=== PATIENT | male | born 2000 | race Caucasian/White ===

== ENCOUNTER 2020-08-12 09:20 | Emergency (ER) | payer OTHER ==
[2020-08-12 09:35] VITALS: PULSE 88
[2020-08-12] MEDS ORDERED: Sodium Chloride 0.9% 10 ML Syringe FLUSH PRN ×2 (10:01→10:14)
--- NOTE | 2020-08-12 10:01 | EDM.PDOC ---
ED HPI GENERAL MEDICAL PROBLEM - General Chief Complaint: Neck Problem Stated Complaint: RIGHT SIDE NECK SWELLING Time Seen by Provider: 08/12/20 09:44 Source of Information: Reports: Patient History Limitations: Reports: No Limitations - History of Present Illness INITIAL COMMENTS - FREE TEXT/NARRATIVE: Chato is a 20-year-old male presenting to the ED for evaluation of neck briseyda n/muscle strain. The patient has been seeking the care of a tank car reconditioner in [facility] for the last week who reportedly told him that he had ruptured a muscle in his neck. He has been getting some manipulation and has been using a natural path patch as well as taking ibuprofen 400 mg intermittently. He did continue to work after the initial injury in the swelling and pain has substantially worsened over the course of the week. He did see the tank car reconditioner again who recommended he come to the ER for further evaluation. The patient denies any numbness or tingling but the neck is becoming much more tight. Mom notices that he has become much louder with the snoring. He denies any difficulty with breathing or swallowing. 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 Both of which have likely further exacerbated his injury. He does complain of headache but denies any other neurologic symptoms. Right Neck Pain Score (Numeric/FACES): 6 - Related Data Allergies Allergy/AdvReac Type Severity Reaction Status Date / Time penicillin Allergy Hives Verified 08/12/20 09:35 Home Meds: Home Meds Clindamycin HCl 300 mg PO TID 14 Days #42 capsule 08/12/20 [Rx] Past Medical History - Past Health History Medical/Surgical History: Denies Medical/Surgical History - Infectious Disease History Infectious Disease History: Reports: None Social & Family History - Tobacco Use Tobacco Use Status *Q: Never Tobacco User - Caffeine Use Caffeine Use: Reports: Coffee - Recreational Drug Use Recreational Drug Use: No ED ROS GENERAL - Review of Systems Review Of Systems: See Below Constitutional: Reports: No Symptoms HEENT: Reports: Throat Swelling Respiratory: Reports: No Symptoms Cardiovascular: Reports: No Symptoms Endocrine: Reports: No Symptoms GI/Abdominal: Reports: No Symptoms : Reports: No Symptoms Musculoskeletal: Reports: Neck Pain (Neck pain and swelling with reduced range of motion), Muscle Pain (Right side cervical spine), Muscle Stiffness (Right- sided cervical spine) Skin: Reports: Bruising Neurological: Reports: Headache Psychiatric: Reports: No Symptoms Hematologic/Lymphatic: Reports: No Symptoms Immunologic: Reports: No Symptoms ED EXAM, UPPER BACK/NECK PAIN - Physical Exam Exam: See Below Exam Limited By: No Limitations General Appearance: Alert, Mild Distress Eye Exam: Bilateral Eye: EOMI, PERRL Throat/Mouth Exam: Normal Inspection, Normal Lips, Normal Oropharynx, Normal Voice, No Airway Compromise Head Exam: Atraumatic, Normocephalic Neck Exam: Limited Range of Motion (Limited range of motion with movement toward the right), Muscle Spasm (Significant pain and swelling over the right sided strap muscles, sternocleidomastoid muscle, trapezius muscle), Painful Range of Motion (Severe swelling over the right sided muscle groups limiting range of motion towards that direction), Tenderness, Tender Lateral, Other (By palpation, there appears to be a very large hematoma from the angle of the jaw to the supraclavicular space. There is bruising noted in the supraclavicular space. 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 As Tested, No Motor/Sensory Deficits, Alert, Normal Mood/Affect, Oriented x 3 Psychiatric: Normal Affect, Normal Mood Skin Exam: Warm/Dry, Ecchymosis (In the right supraclavicular space) Lymphatic: No Adenopathy Course - Vital Signs Last Recorded V/S: Last Vital Signs Temp 37.0 C 08/12/20 09:33 Pulse 88 08/12/20 11:48 Resp 16 08/12/20 11:48 BP 133/59 L 08/12/20 11:48 Pulse Ox 97 08/12/20 11:48 - Orders/Labs/Meds Orders: Active Orders 24 hr Category Date Time Status 3D Reconstruction [CT] Stat Exams 08/12/20 Taken Saline Lock Insert [OM.PC] Routine Oth 08/12/20 10:01 Ordered Labs: Laboratory Tests 08/12/20 08/12/20 Range/Units 11:10 11:10 WBC 15.2 H (4.5-11.0) K/uL RBC 4.86 (4.30-5.90) M/uL Hgb 14.0 (12.0-15.0) g/dL Hct 43.3 (40.0-54.0) % MCV 89 (80-98) fL MCH 29 (27-31) pg MCHC 32 (32-36) % Plt Count 196 (150-400) K/uL Neut % (Auto) 83 H (36-66) % Lymph % (Auto) 6 L (24-44) % Hand % (Auto) 10 H (2-6) % Eos % (Auto) 0 L (2-4) % Baso % (Auto) 0 (0-1) % ESR 58 H (0-20) mm/hr C-Reactive Protein 11.68 H (0.0-0.3) mg/dL Meds: Medications Discontinued Medications Generic Name Dose Route Start Last Admin Trade Name Freq PRN Reason Stop Dose Admin Sodium Chloride 70 mls @ 3 mls/sec 08/12/20 10:14 08/12/20 10:30 Normal Saline IV 08/12/20 10:15 3 mls/sec ONETIME ONE Administration Ceftriaxone Sodium 2 gm/ 50 mls @ 100 mls/hr 08/12/20 11:28 08/12/20 11:42 Sodium Chloride IV 08/12/20 11:57 100 mls/hr ONETIME ONE Administration Ibuprofen 600 mg 08/12/20 11:50 08/12/20 11:58 Motrin PO 08/12/20 11:51 600 mg ONETIME ONE Administration Iopamidol 100 ml 08/12/20 10:14 08/12/20 10:29 Isovue-300 (61%) IV 100 ml . DIRECTED PRN Administration RADIOLOGY EXAM Sodium Chloride 10 ml 08/12/20 10:01 Saline Flush FLUSH ASDIRECTED PRN Keep Vein Open Sodium Chloride 10 ml 08/12/20 10:14 08/12/20 10:29 Saline Flush FLUSH 10 ml ONETIME PRN Administration PER RADIOLOGY PROTOCOL - Radiology Interpretation Free Text/Narrative:: I discussed the case with Dr. Woodard from [facility] who reviewed the CT of the soft tissue neck and 3D reconstruction of the cervical spine. In addition I reviewed the report. Impression: 1. There is a 3.9 x 3.1 x 4.3 cm peripherally enhancing mass in the right level 3 lex station with moderate adjacent fat stranding, edema of the right sternocleidomastoid and levator scapula muscles, and severe intrinsic compression of the right internal jugular vein. Thickening and enhancement of the right platysma muscle. Findings are favored to represent supportive lymphadenitis with adjacent myositis and cellulitis. Necrotic metastatic lymph node is considered less likely given the degree of surrounding edema and lack of primary site. Follow-up imaging is recommended after treatment to ensure resolution. 2. There is retropharyngeal effusion measuring up to 8 mm AP. Multiple prominent right level 2 through 6 lymph nodes are likely reactive in etiology. 3. No cervical spine fracture. Mild straightening and slight reversal cervical lordosis may be secondary to muscle spasm or positioning. Dictated by Curt Woodard MD at August 12, 2020 10:51 AM. - Re-Assessments/Exams Free Text/Narrative Re-Assessment/Exam: 08/12/20 11:[address] of the soft tissue neck and 3D reconstruction of the cervical spine showing supportive lymphadenitis extending from the angle of the jaw down to the chest. We will initiate antibiotics with Rocephin 2 g IV and then placed the patient on clindamycin 300 mg 3 times daily for 14 days. This should cover the majority of bacterium associated with supportive lymphadenitis including staph aureus, Bartonella, Yersinia, and anaerobics. Recommendation from radiology is to reimage the neck after the completion of the antibiotics to ensure resolution. I had like the patient to follow-up with one of the clinic providers in 2 weeks who can arrange this. The patient is instructed to return to the ED should he have significant worsening especially if it starting to impede his airway. The CT does show retropharyngeal effusion and paratracheal swelling as well as mild compression of the right internal jugular vein. Patient continued continue to take naproxen 2 tablets twice daily for pain and swelling. I am taking him off work for 2 weeks until the resolution of this is complete. Departure - Departure Time of Disposition: 11:50 Disposition: Home, Self-Care 01 Condition: Fair Clinical Impression: Suppurative lymphadenitis - Discharge Information *PRESCRIPTION DRUG MONITORING PROGRAM REVIEWED*: Not Applicable *COPY OF PRESCRIPTION DRUG MONITORING REPORT IN PATIENT MICHELL: Not Applicable Prescriptions: Clindamycin HCl 300 mg PO TID 14 Days #42 capsule Instructions: Lymphangitis, Adult Referrals: PCP,None [Primary Care Provider] - Forms: ED Department Discharge Care Plan Goals: You have been diagnosed today with suppurative lymphadenitis which she has an abscess formation in the soft tissues of your neck likely arising from your throat. You will be on a 2-week course of clindamycin 300 mg 3 times a day which is an oral antibiotic active against this infection. This does not appear to be a traumatic hematoma (collection of blood due to straining of the muscle and the neck, but rather a soft tissue infection causing swelling and inflammation of the muscle and tissues between the muscles. You should refrain from heavy lifting or straining. Return to the emergency room immediately should you start to develop any shortness of breath or difficulty with swallowing. I would like you to follow-up with one of the [facility] doctors in 2 weeks for reevaluation including a repeat of the CT of the soft tissue of neck with contrast to ensure that the infection has cleared. Sepsis Event Note (ED) - Evaluation Sepsis Screening Result: No Definite Risk - Focused Exam Vital Signs: Vital Signs Temp Pulse Resp BP Pulse Ox 08/12/20 11:48 88 16 133/59 L 97 08/12/20 09:33 37.0 C 88 16 143/72 H 99 - Problem List & Annotations (1) Suppurative lymphadenitis SNOMED Code(s): 18849224 Code(s): L04.9 - ACUTE LYMPHADENITIS, UNSPECIFIED Status: Acute Priority: High - Problem List Review Problem List Initiated/Reviewed/Updated: Yes - My Orders Last 24 Hours: My Active Orders 08/12/20 3D Reconstruction [CT] Stat 08/12/20 10:01 Saline Lock Insert [OM.PC] Routine - Assessment/Plan Last 24 Hours: My Active Orders 08/12/20 3D Reconstruction [CT] Stat 08/12/20 10:01 Saline Lock Insert [OM.PC] Routine
[2020-08-12] MEDS ORDERED: Iopamidol 612 MG/ML 100 ML Bottle IV PRN (10:14)
--- NOTE | 2020-08-12 11:09 | CRLCT ---
INDICATION: neck pain and swelling on right TECHNIQUE: CT of the neck with 100 cc Omnipaque 300 iodinated contrast agent. Coronal and sagittal reconstructions are included. COMPARISON: None FINDINGS: There is a 3.9 x 3.1 x 4.3 cm peripherally enhancing mass in the right level 3 lex station with moderate adjacent fat stranding, thickening of the right sternocleidomastoid and levator scapula muscles. Severe external compression of the right internal jugular vein. Findings are favored to represent necrotic infectious lymphadenitis with adjacent myositis and cellulitis. Necrotic metastatic lymph node is considered less likely given degree of surrounding edema and lack of primary site. There is retropharyngeal effusion measuring up to 8 mm AP. Multiple prominent right level II-Vlymph nodes are likely reactive in etiology. The oral cavity, nasopharyngeal, oropharyngeal and hypopharyngeal mucosal spaces are normal. No periapical dental disease. The supraglottic, glottic and infraglottic larynx are normal. The airway including the trachea is normal and is patent. The parotid glands, submandibular and sublingual glands are normal in appearance. The thyroid gland is normal in appearance. Mild straightening and slight reversal cervical lordosis may be secondary to muscle spasm or positioning. No suspicious lytic or blastic osseous lesions. Minimal mucosal thickening in the right maxillary sinus. Mild polypoid mucosal thickening left maxillary sinus. Visualized orbital and intracranial contents are normal. Supraclavicular regions, mediastinum and soft tissues of the imaged chest wall are unremarkable. Visualized portions of the upper lungs are clear. Findings called to Dr. Martínez at 11:03 pm. IMPRESSION: 1. There is a 3.9 x 3.1 x 4.3 cm peripherally enhancing mass in the right level 3 lex station with moderate adjacent fat stranding, edema of the right sternocleidomastoid and levator scapula muscles, and severe extrinsic compression of the right internal jugular vein. Thickening and enhancement of the right platysma muscle. Findings are favored to represent suppurative lymphadenitis with adjacent myositis and cellulitis. Necrotic metastatic lymph node is considered less likely given degree of surrounding edema and lack of primary site. Follow-up imaging is recommended after treatment to ensure resolution. 2. There is retropharyngeal effusion measuring up to 8 mm AP. Multiple prominent right level II-Vlymph nodes are likely reactive in etiology. 3. No cervical spine fracture. Mild straightening and slight reversal cervical lordosis may be secondary to muscle spasm or positioning. Please note that all CT scans at this facility use dose modulation, iterative reconstruction, and/or weight-based dosing when appropriate to reduce radiation dose to as low as reasonably achievable. Dictated by Curt Woodard MD @ Aug 12 2020 10:51AM Signed by Dr. Curt Woodard @ Aug 12 2020 11:09AM
[2020-08-12] MEDS ORDERED: cefTRIAXone 2 GM in Sodium Chloride 0.9% 50 ML IV ONE (11:28)
[2020-08-12 11:48] VITALS: BP 133/59
[2020-08-12] MEDS ORDERED: Ibuprofen 600 MG Tab PO ONE (11:50)
== END 2020-08-12 12:10 | disposition home or self-care (01) ==
LOC: JP.ED 09:20
DX: L04.0 Acute lymphadenitis of face, head and neck (principal); Z88.0 Allergy status to penicillin
CPT/HCPCS: 36415; 70491; 76377; 85025; 85651; 86140; 96365; 99283; 99284-25; A9270-GY; J0696; Q9967